=== PATIENT | female | born 1975 | race Two or more races ===

== ENCOUNTER 2019-09-07 12:33 | Emergency (ER) | payer MEDICAID, OTHER ==
[~2019-09-07] VITALS: Ht 165.1 cm; Wt 74.4 kg
[2019-09-07 16:50] VITALS: BP 129/69
[2019-09-07] MEDS ORDERED: IBUPROFEN 800 MG TAB PO ONE (21:30)
== END 2019-09-08 03:09 | disposition home or self-care (01) ==
LOC: ER 12:43
DX: S46.911A Strain of unspecified muscle, fascia and tendon at shoulder and upper arm level, right arm, initial encounter (principal); M25.421 Effusion, right elbow; R51 Headache; X58.XXXA Exposure to other specified factors, initial encounter; Y93.89 Activity, other specified; Y92.89 Other specified places as the place of occurrence of the external cause; Y99.8 Other external cause status
CPT/HCPCS: 36415; 70450; 73080; 73200; 84550